=== PATIENT | female | born 1955 | race Two or more races ===

== ENCOUNTER 2024-06-24 08:50 | Emergency (ER) | payer OTHER ==
[~2024-06-24] VITALS: Ht 162.6 cm; Wt 45.0 kg
[2024-06-24 09:20] VITALS: PULSE 94; RESP 17; O2SAT 94
[2024-06-24 09:21] VITALS: TEMP 98.1
[2024-06-24 09:26] LABS: Basophils # (auto) 0 10 ^3/uL (0-0.2); Basophils % (auto) 0.2 % (0.0-2.0); Eosinophils # (auto) 0 10 ^3/uL (0-0.8); Eosinophils % (auto) 0.2 % (0.0-7.0); Hematocrit 44.1 % (36.0-46.0); Hemoglobin 14.6 g/dL (12.2-16.2); Lymphocytes # (auto) 1.3 10 ^3/uL (0.4-5.4); Lymphocytes % (auto) 10.9 % (10.0-50.0); Mean Corpuscular Hemoglobin 29.8 pg (28.0-32.0); Mean Corpuscular Hgb Conc. 33.1 g/dL (32.0-36.0); Monocytes # (auto) 0.4 10 ^3/uL (0-1.3); Monocytes % (auto) 3.1 % (0.0-12.0); Neutrophils # (auto) 10.3 10 ^3/uL (1.6-8.6); Neutrophils % (auto) 85.6 % (37.0-80.0); Nucleated Red Blood Cells % 0.1 %; Platelet Count (auto) 312 10^3/uL (140-450); Red Blood Cells 4.91 10^6/uL (4.0-5.20); Red Cell Distribution Width 15.5 % (11.8-14.3); White Blood Cell 12.1 10^3/uL (4.4-10.8)
[2024-06-24] MEDS: SODIUM CHLORIDE 0.9% 1,000 ML IV ONE ×2 (09:42→09:43)
[2024-06-24] MEDS: ONDANSETRON HCL 4 MG/2 ML VIAL IV ONE (09:42)
[2024-06-24 09:43] LABS: Anion Gap 8 (5-15); Carbon Dioxide 29 mmol/L (20-31); Chloride 105 mmol/L (98-107); Potassium 3.6 mmol/L (3.5-5.1); Sodium 142 mmol/L (136-145)
[2024-06-24 09:49] LABS: Blood Urea Nitrogen 14 mg/dL (9-23); Glucose 171 mg/dL (74-106)
[2024-06-24 09:58] LABS: Urine Bacteria None Seen /hpf (None Seen)
[2024-06-24 10:14] LABS: Urine Blood Negative /uL (Negative); Urine Clarity Turbid (Clear); Urine Color Colorless (Yellow); Urine Protein, UAD 1+ (Negative); Urine Specific Gravity 1.012 (1.001-1.035); Urine Urobilinogen Normal (Negative); Urine WBC 10 /hpf (0 - 5); Urine pH 7.5 (5.0-9.0)
[2024-06-24] MEDS: PANTOPRAZOLE 40 MG/10 ML VIAL INJ IV SCH (10:50)
[2024-06-24 11:07] LABS: COVID19 ANTIGEN SOFIA FIA NEGATIVE (NEGATIVE); Rapid Influenza A Negative (Negative); Rapid Influenza B Negative (Negative)
[2024-06-24] MEDS: cefTRIAXone 1GM/50ML D5W 50 ML IV ONE (12:10)
[2024-06-24] MEDS: ACETAMINOPHEN 500 MG TAB PO ONE (12:19)
[2024-06-24] MEDS ORDERED: LEVO500T91 PO (13:38)
[2024-06-24] MEDS: ONDANSETRON HCL 4 MG/2 ML VIAL IV PRN (13:56)
[2024-06-24 15:00] VITALS: BP 155/77; PULSE 93; RESP 17; O2SAT 96
[2024-06-24] MEDS ORDERED: ZOFR4T PO (15:01)
== END 2024-06-24 15:00 | disposition home or self-care (01) ==
LOC: ER 08:50
DX: I10 Essential (primary) hypertension (principal); R53.1 Weakness; E11.9 Type 2 diabetes mellitus without complications; Z86.73 Personal history of transient ischemic attack (TIA), and cerebral infarction without residual deficits; Z98.890 Other specified postprocedural states; Z20.822 Contact with and (suspected) exposure to COVID-19
CPT/HCPCS: 36415; 70450; 80048; 81001; 85025; 87426; 87804; 93005; 96361; 96365; 96375; 96376; 99285; J0696; J2405; J2470; J7030